=== PATIENT | male | born 1985 | race Caucasian/White ===

== ENCOUNTER 2024-06-18 21:32 | Emergency (ER) | payer BC ==
[~2024-06-18] VITALS: Ht 177.8 cm; Wt 163.9 kg
[2024-06-18 23:08] VITALS: BP 162/96; PULSE 92; RESP 18; TEMP 97.2; O2SAT 98
== END 2024-06-18 23:10 | disposition home or self-care (01) ==
LOC: ER 21:33
DX: N43.3 Hydrocele, unspecified (principal)
CPT/HCPCS: 76870; 93976; 99284

== ENCOUNTER 2024-07-17 18:01 | Emergency (ER) | payer BC ==
[~2024-07-17] VITALS: Ht 177.8 cm; Wt 127.0 kg
[2024-07-17] MEDS ORDERED: POLY17PO10 PO (19:30)
--- NOTE | 2024-07-17 19:31 | Physician Documentation ---
History of Present Illness General Chief Complaint: Constipation Stated Complaint: DIZZY/NAUSEA Time Seen by MD: 18:36 History of Present Illness Initial Comments 38-year-old male who presents to the emergency department with concerns of constipation. Reports he has not had associated bowel movement 4-5 days. He is on SGOT one inhibitor. Reports he has tried Fleet's enema, Mag citrate and Metamucil. Has passed only a small amount of stool only. Drank some beers last night and feels gassy today. No prior history of the same and no recent abdominal surgeries. Medication Reconciliation Allergies: Coded Allergies: No Known Allergies (Unverified , 06/18/24) Scheduled Polyethylene Glycol 3350* (Miralax*), 17 GM PO BID Review of Systems All Other Systems at this time: Reviewed and Negative GI: Reports: constipation Physical Exam Physical Exam Vital Signs: RN Vital Signs have been reviewed: Yes, Temperature: 97.5, Source: Oral, Heart Rate: 72, Respiratory Rate: 18, BP: 159/74, Pulse Oximetry: 98, Weight: 127.000 General Appearance: alert, WD/WN, mild distress Head: normal inspection Face: normal inspection Pupils/EOM/Fundus: PERRLA Neck: non-tender Respiratory: lungs clear Chest: no accessory muscle use Cardiovascular: normal peripheral pulses Gastrointestinal: normal palpation Back: normal inspection Extremities: normal range of motion Neurologic: oriented x4 Motor / Sensory: no motor deficit, no sensory deficit Psychiatric: normal mood/affect Skin: normal color Lymphatic: no adenopathy Progress Results/Orders Results/Orders Orders - MARIELA HERNANDEZ PAC Abdomen,Single View(Kub) (07/17/24 ) Completed Orders - MARIELA HERNANDEZ PAC Abdomen,Single View(Kub) (07/17/24 ) Normal Saline 1000ml (Sodium Chloride 10 (07/17/24 19:15) Medications Received in ER Medications (Trade) Dose Ordered Sig/Giovanni Route PRN Reason Start Time Stop Time Status Last Admin Dose Admin Sodium Chloride 1,000 ml @ 1,000 mls/hr ONCE ONCE IV 07/17/24 19:15 07/17/24 20:14 DC 07/17/24 20:24 1,000 MLS/HR Vital Signs 07/17/24 18:13 Temp 97.5 Pulse 72 Resp 18 B/P (MAP) 159/74 Pulse Ox 98 Medical Decision Making Differential Diagnosis Greeted the patient and we will obtain KUB x-ray to evaluate for fluid levels. Examination history consistent with that if physiologic versus pathologic constipation. No clinical suspicion at this time for acute obstruction volvulus or ileus. Patient was to be hydrated with IV normal saline in the discharged with prescription for MiraLax. Departure Disposition: HOME / SELF CARE / HOMELESS Impression: Primary Impression: Constipation Qualified Codes: K59.00 - Constipation, unspecified Discharge Instructions: Constipation, Adult Additional Instructions: Tonight in the emergency department you had IV hydration, x-ray obtained that is reassuring for no bowel obstruction. Please begin MiraLax as directed. You may continue to take Mag citrate and/or use a Fleet's enema if he chews. Make follow up appointment with the primary care physician and/or return if worse. Referrals: NO PRIMARY CARE PROVIDER (PCP) Prescriptions Polyethylene Glycol 3350* (Miralax*) 1 Packet Packet 17 GM PO BID, #40 PACKET Prov: MARIELA HERNANDEZ 07/17/24 Education Educated: Patient Educated regarding: diagnosis Signature Scribe Signature: . Attestation: . MARIELA HERNANDEZ PAC July 17, 2024 19:31
[2024-07-17] MEDS: normal saline 1000ml 1,000 ML IV ONE (20:24)
--- NOTE | 2024-07-17 20:43 | RADIOLOGY REPORT ---
Date: 07/17/2024 07:59 PM Examination: DI ABDOMEN,SINGLE VIEW(KUB) History: constipation Comparison: None TECHNIQUE: Frontal views of the abdomen was obtained. FINDINGS: Bowel gas pattern is unremarkable. The lung bases are unremarkable. No acute osseous abnormality identified. IMPRESSION: 1. Nonobstructive bowel gas pattern. 2. Stool throughout the colon
[2024-07-17 21:12] VITALS: BP 150/78; PULSE 78; RESP 16; TEMP 98.3; O2SAT 99
== END 2024-07-17 21:14 | disposition home or self-care (01) ==
LOC: ER 18:02
DX: K59.00 Constipation, unspecified (principal)
CPT/HCPCS: 74018; 99283; J7030